=== PATIENT | female | born 2005 | race African-American/Black ===

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

== ENCOUNTER 2024-12-08 03:35 | Observation (INO) | payer MEDICAID, SELFPAY ==
[2024-12-08] VITALS (13 sets, daily range): BP systolic 122–154; BP diastolic 76–92; PULSE 70–106; TEMP 36.2
--- OUTSIDE RECORDS SUMMARY | 2024-12-08 03:38 | XMS_ITS | CCD ---
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 B1 <1:10 Normal <1:10 [facility] Comment on above: Performed By: #### A AFPM #### [facility] [employer] [address] [place] [address] [phone] Administrative Judge: Charles Steinberg MD [facility] [address] [place] [address] Administrative Judge: Zoltan Garcia MD #### TOXOG, CMVG, CMVM, TOXOM #### [facility] [employer] [address] [place] [address] [phone] Administrative Judge: Charles Steinberg MD #### ACOXA9, APARVP, ACOXAB #### [facility] [address] [place] [address] Administrative Judge: MD Eda Cruz. B2 1:40 Normal <1:10 [facility] Comment on above: Performed By: #### A AFPM #### [facility] [address] [place] [address] Administrative Judge: Charles Steinberg MD [facility] [address] [place] [address] Administrative Judge: Zoltan Garcia MD #### TOXOG, CMVG, CMVM, TOXOM #### [facility] [address] [place] [address] Administrative Judge: Charles Steinberg MD #### ACOXA9, APARVP, ACOXAB #### [facility] [address] [place] [address] Administrative Judge: MD Eda Cruz B3 1:40 Normal <1:10 [facility] Comment on above: Performed By: #### A AFPM #### [address] [address] Administrative Judge: Charles Steinberg MD [facility] [address] [place] [address] Administrative Judge: Zoltan Garcia MD #### TOXOG, CMVG, CMVM, TOXOM #### [address] [address] Administrative Judge: Charles Steinberg MD #### ACOXA9, APARVP, ACOXAB #### [facility] [address] [place] [address] Administrative Judge: MD Eda Cruz B4 1:160 Abnormal <1:10 [facility] Comment on above: Performed By: #### A AFPM #### [facility] [address] [place] [address] Administrative Judge: Charles Steinberg MD [facility] [address] [place] [address] Administrative Judge: Zoltan Garcia MD #### TOXOG, CMVG, CMVM, TOXOM #### [address] [address] Administrative Judge: Charles Steinberg MD #### ACOXA9, APARVP, ACOXAB #### [address] [address] Administrative Judge: MD Eda Cruz. B5 <1:10 Normal <1:10 [facility] Comment on above: Performed By: #### A AFPM #### [address] [address] Administrative Judge: Charles Steinberg MD [address] [phone] Administrative Judge: Zoltan Garcia MD #### TOXOG, CMVG, CMVM, TOXOM #### [address] [address] Administrative Judge: Charles Steinberg MD #### ACOXA9, APARVP, ACOXAB #### [address] [phone] Administrative Judge: MD Eda Cruz. B6 <1:10 Normal <1:10 [facility] Comment on above: Result Comment: (NOT E) INTERPRETIVE INFORMATION: Coxsackie B Virus Single positive antibody titers of greater than or equal to 1:80 may indicate past or current infection. Sero- conversion or an increase in titers between acute and convalescent sera of at least fourfold is considered strong evidence of current or recent infection. Performed By: [facility] [employer] [address] [place] [address] Wrecking Supervisor: Da Navarro MD, PhD CLIA Number: [id number] Performed By: #### A AFPM #### [address] [address] Administrative Judge: Charles Steinberg MD [address] [address] Administrative Judge: Zoltan Garcia MD #### TOXOG, CMVG, CMVM, TOXOM #### [address] [address] Administrative Judge: Charles Steinberg MD #### ACOXA9, APARVP, ACOXAB #### [address] [address] Administrative Judge: Zoltan Garcia MD Coxsackie A9 Titeron 023 Coxsackie A9 Titer <1:8 Normal <1:8 [facility] Comment on above: Result Comment: (NOT E) INTERPRETIVE INFORMATION: Coxsackie A Serotype 9 Titer Single positive antibody titers of greater than 1:32 may indicate past or current infection. Seroconversion or an increase in titers between acute and convalescent sera of at least fourfold is considered strong evidence of current or recent infection. Performed By: [address] [address] Wrecking Supervisor: Da Navarro MD, PhD CLIA Number: [id number] Performed By: #### A AFPM #### [address] [address] Administrative Judge: Charles Steinberg MD [address] [address] Administrative Judge: Zoltan Garcia MD #### TOXOG, CMVG, CMVM, TOXOM #### [address] [address] Administrative Judge: Charles Steinberg MD #### ACOXA9, APARVP, ACOXAB #### [address] [address] Administrative Judge: Zoltan Garcia MD AFP, Maternalon 05-09-2023 Determined by Other Normal [facility] Comment on above: Performed By: #### A AFPM #### [address] [address] Administrative Judge: Charles Steinberg MD [facility] [address] [place] [address] Administrative Judge: Zoltan Garcia MD #### TOXOG, CMVG, CMVM, TOXOM #### [address] [address] Administrative Judge: Charles Steinberg MD #### ACOXA9, APARVP, ACOXAB #### [facility] [address] [place] [address] Administrative Judge: Zoltan Garcia MD Due Date SEE NOTE Normal [facility] Comment on above: Result Comment: Resu lts for Estimated Due Date: 09 13 23 Performed By: #### A AFPM #### [address] [address] Administrative Judge: Charles Steinberg MD [facility] [address] [place] [address] Administrative Judge: Zoltan Garcia MD #### TOXOG, CMVG, CMVM, TOXOM #### [address] [address] Administrative Judge: Charles Steinberg MD #### ACOXA9, APARVP, ACOXAB #### [facility] [address] [place] [address] Administrative Judge: Zoltan Garcia MD Family History No Normal [facility] Comment on above: Performed By: #### A AFPM #### [address] [address] Administrative Judge: Charles Steinberg MD [facility] [address] [place] [address] Administrative Judge: Zoltan Garcia MD #### TOXOG, CMVG, CMVM, TOXOM #### [address] [address] Administrative Judge: Charles Steinberg MD #### ACOXA9, APARVP, ACOXAB #### [facility] [address] [place] [address] Administrative Judge: Zoltan Garcia MD Gestat Age (exact) 21 wks, 3 days Normal [facility] Comment on above: Performed By: #### A AFPM #### [address] [address] Administrative Judge: Charles Steinberg MD [facility] [address] [place], [place] [id number] Administrative Judge: Zoltan Garcia MD #### TOXOG, CMVG, CMVM, TOXOM #### [address] [address] Administrative Judge: Charles Steinberg MD #### ACOXA9, APARVP, ACOXAB #### [facility] [address] [place] [address] Administrative Judge: Zoltan Garcia MD Ins Req Matern Diab No [facility] Comment on above: Performed By: #### A AFPM #### [address] [address] Administrative Judge: Charles Steinberg MD [facility] [address] [place] [address] Administrative Judge: Zoltan Garcia MD #### TOXOG, CMVG, CMVM, TOXOM #### [facility] [address] [place] [address] Administrative Judge: Charles Steinberg MD #### ACOXA9, APARVP, ACOXAB #### [facility] [address] [place] [address] Administrative Judge: Zoltan Garcia MD Interpretation Screen Neg Normal [facility] Comment on above: Result Comment: (NOT E) INTERPRETATION: SCREEN NEGATIVE for open spina bifida Neural Tube Defects (NTD) Negative Pre-Test Post-Test Cutoff Neural Tube Defects Risks 1:1030 < 1:18480 1:250 Comments: The risk of an open neural tube defect is less than the screening cut-off. This test was developed and its performance characteristics determined by [facility]. It has not been cleared or approved by the [place] Food and Drug Administration. This test was performed in a CLIA certified laboratory and is intended for clinical purposes. Performed By: #### A AFPM #### [facility] [address] [place] [address] Administrative Judge: Charles Steinberg MD [facility] [address] [phone] Administrative Judge: Zoltan Garcia MD #### TOXOG, CMVG, CMVM, TOXOM #### [facility] [address] [place] [address] Administrative Judge: Charles Steinberg MD #### ACOXA9, APARVP, ACOXAB #### [facility] [address] [place] [address] Administrative Judge: Zoltan Garcia MD [age] [facility] Comment on above: Performed By: #### A AFPM #### [address] [address] Administrative Judge: Charles Steinberg MD [facility] [address] [place] [address] Administrative Judge: Zoltan Garcia MD #### TOXOG, CMVG, CMVM, TOXOM #### [facility] [address] [place] [address] Administrative Judge: Charles Steinberg MD #### ACOXA9, APARVP, ACOXAB #### [facility] [address] [place] [address] Administrative Judge: Zoltan Garcia MD Maternal Race Black [facility] Comment on above: Performed By: #### A AFPM #### [facility] [address] [place] [address] Administrative Judge: Charles Steinberg MD [facility] [address] [place] [address] Administrative Judge: Zoltan Garcia MD #### TOXOG, CMVG, CMVM, TOXOM #### [facility] [address] [place] [address] Administrative Judge: Charles Steinberg MD #### ACOXA9, APARVP, ACOXAB #### [facility] [address] [place] [address] Administrative Judge: Zoltan Garcia MD Maternal Weight 132.0 lbs. Normal [facility] Comment on above: Performed By: #### A AFPM #### [address] [address] Administrative Judge: Charles Steinberg MD [facility] [address] [place] [address] Administrative Judge: Zoltan Garcia MD #### TOXOG, CMVG, CMVM, TOXOM #### [address] [address] Administrative Judge: Charles Steinberg MD #### ACOXA9, APARVP, ACOXAB #### [facility] [address] [place] [address] Administrative Judge: Zoltan Garcia MD MoM for AFP 0.85 Normal [facility] Comment on above: Performed By: #### A AFPM #### [address] [address] Administrative Judge: Charles Steinberg MD [facility] [address] [place] [address] Administrative Judge: Zoltan Garcia MD #### TOXOG, CMVG, CMVM, TOXOM #### [facility] [address] [place] [address] Administrative Judge: Charles Steinberg MD #### ACOXA9, APARVP, ACOXAB #### [facility] [address] [place] [address] Administrative Judge: Zoltan Garcia MD Number of Fetuses Rendon Normal [facility] Comment on above: Performed By: #### A AFPM #### [facility] [address] [place] [address]71 Administrative Judge: Charles Steinberg MD [facility] [address] [place] [address] Administrative Judge: Zoltan Garcia MD #### TOXOG, CMVG, CMVM, TOXOM #### [address] [address] Administrative Judge: Charles Steinberg MD #### ACOXA9, APARVP, ACOXAB #### [facility] [address] [place] [address] Administrative Judge: Zoltan Garcia MD Patient's AFP 76 ng/mL [facility] Comment on above: Performed By: #### A AFPM #### [address] [address] Administrative Judge: Charles Steinberg MD [facility] [address] [place] [address] Administrative Judge: Zoltan Garcia MD #### TOXOG, CMVG, CMVM, TOXOM #### [facility] [address] [place] [address] Administrative Judge: Charles Steinberg MD #### ACOXA9, APARVP, ACOXAB #### [facility] [address] [place] [address] Administrative Judge: Zoltan Garcia MD Smoking No [facility] Comment on above: Performed By: #### A AFPM #### [address] [address] Administrative Judge: Charles Steinberg MD [facility] [address] [place] [address] Administrative Judge: Zoltan Garcia MD #### TOXOG, CMVG, CMVM, TOXOM #### [address] [address] Administrative Judge: Charles Steinberg MD #### ACOXA9, APARVP, ACOXAB #### [facility] [address] [place] [address] Administrative Judge: Zoltan Garcia MD Specimen See Note Normal [facility] Comment on above: Result Comment: (NOT E) Initial sample Performed By: [facility] [address] [place] [address] Wrecking Supervisor: Da Navarro MD, PhD CLIA Number: [id number] Performed By: #### A AFPM #### [address] [address] Administrative Judge: Charles Steinberg MD [facility] [address] [place], [place] [id number] Administrative Judge: Zoltan Garcia MD #### TOXOG, CMVG, CMVM, TOXOM #### [address] [address] Administrative Judge: Charles Steinberg MD #### ACOXA9, APARVP, ACOXAB #### [facility] [address] [place] [address] Administrative Judge: Zoltan Garcia MD Parvovirus B19 Panelon 05-08 Parvovirus IgG B19 1.20 IV High <=0.90 [facility] Comment on above: Result Comment: [...] time. Performed By: #### A AFPM #### [facility] [address] [place] [address] Administrative Judge: Charles Steinberg MD [facility] [address] [place] [address] Administrative Judge: Zoltan Garcia MD #### TOXOG, CMVG, CMVM, TOXOM #### [address] [phone] Administrative Judge: Charles Steinberg MD #### ACOXA9, APARVP, ACOXAB #### [facility] [address] [place] [address] Administrative Judge: Zoltan Garcia MD Parvovirus IgM B19 0.30 IV Normal <=0.90 [facility] Comment on above: Result Comment: [...] levels of specific IgM antibodies. Performed By: [facility] [address] [place] [address] Wrecking Supervisor: Da Navarro MD, PhD CLIA Number: [id number] Performed By: #### A AFPM #### [address] [address] Administrative Judge: Charles Steinberg MD [address] [address] Administrative Judge: Zoltan Garcia MD #### TOXOG, CMVG, CMVM, TOXOM #### [address] [address] Administrative Judge: Charles Steinberg MD #### ACOXA9, APARVP, ACOXAB #### [address] [address] Administrative Judge: Zoltan Garcia MD Toxoplasma Ab,IgGon 05-08-20 23 Toxoplasma Ab,IgG <0.5 Normal [facility] Comment on above: Result Comment: REFERENCE [...] SERA. Performed By: #### A AFPM #### [address] [address] Administrative Judge: Charles Steinberg MD [address] [address] Administrative Judge: Zoltan Garcia MD #### TOXOG, CMVG, CMVM, TOXOM #### [address] [address] Administrative Judge: Charles Steinberg MD #### ACOXA9, APARVP, ACOXAB #### [facility] [address] [place] [address] [phone] Administrative Judge: Zoltan Garcia MD Toxoplasma Ab,IgMon 05-08-20 23 Toxoplasma Ab,IgM 0.37 Index Normal [facility] Comment on above: Result Comment: REFERENCE RANGE: <0.90 NON-REACTIVE 0.90 TO 0.99 INDETERMINANT >=1.00 REACTIVE Performed By: #### A AFPM #### [address] [address] Administrative Judge: Charles Steinberg MD [address] [phone] Administrative Judge: Zoltan Garcia MD #### TOXOG, CMVG, CMVM, TOXOM #### [address] [address] Administrative Judge: Charles Steinberg MD #### ACOXA9, APARVP, ACOXAB #### [address] [id number] Administrative Judge: Zoltan Garcia MD AFP, Maternalon 05-07-2023 Current Smoking NO Normal [facility] Comment on above: Performed By: #### A AFPM #### [address] [address] Administrative Judge: Charles Steinberg MD [address] [address] Administrative Judge: Zoltan Garcia MD #### TOXOG, CMVG, CMVM, TOXOM #### [address] [address] Administrative Judge: Charles Steinberg MD #### ACOXA9, APARVP, ACOXAB #### [facility] [address] [place] [address] Administrative Judge: Zoltan Garcia MD Dating [facility] Comment on above: Performed By: #### A AFPM #### [facility] [address] [place] [address] Administrative Judge: Charles Steinberg MD [facility] [address] [place] [address] Administrative Judge: Zoltan Garcia MD #### TOXOG, CMVG, CMVM, TOXOM #### [facility] [address] [place] [address] Administrative Judge: Charles Steinberg MD #### ACOXA9, APARVP, ACOXAB #### [facility] [address] [place] [address] Administrative Judge: Zoltan Garcia MD Diabetic [facility] Comment on above: Performed By: #### A AFPM #### [facility] [address] [place] [address] Administrative Judge: Charles Steinberg MD [facility] [address] [place] [address] Administrative Judge: Zoltan Garcia MD #### TOXOG, CMVG, CMVM, TOXOM #### [facility] [address] [place] [address] Administrative Judge: Charles Steinberg MD #### ACOXA9, APARVP, ACOXAB #### [facility] [address] [place] [address] Administrative Judge: Zoltan Garcia MD Donor Egg [facility] Comment on above: Performed By: #### A AFPM #### [facility] [address] [place] [address] Administrative Judge: Charles Steinberg MD [facility] [address] [place] [address] Administrative Judge: Zoltan Garcia MD #### TOXOG, CMVG, CMVM, TOXOM #### [facility] [address] [place] [address] Administrative Judge: Charles Steinberg MD #### ACOXA9, APARVP, ACOXAB #### [facility] [address] [place] [address] Administrative Judge: Zoltan Garcia MD Estimated Due Date 09 13 2023 [facility] Comment on above: Performed By: #### A AFPM #### [facility] [address] [place] [address] Administrative Judge: Charles Steinberg MD [facility] [address] [place] [address] Administrative Judge: Zoltan Garcia MD #### TOXOG, CMVG, CMVM, TOXOM #### [facility] [address] [place] [address] Administrative Judge: Charles Steinberg MD #### ACOXA9, APARVP, ACOXAB #### [facility] [address] [place] [address] Administrative Judge: Zoltan Garcia MD Family History NO [facility] Comment on above: Performed By: #### A AFPM #### [address] [address] Administrative Judge: Charles Steinberg MD [facility] [address] [place] [address] Administrative Judge: Zoltan Garcia MD #### TOXOG, CMVG, CMVM, TOXOM #### [facility] [address] [place] [address] Administrative Judge: Charles Steinberg MD #### ACOXA9, APARVP, ACOXAB #### [facility] [address] [place] [address] Administrative Judge: Zoltan Garcia MD In Vitro Fertalizat NO [facility] Comment on above: Performed By: #### A AFPM #### [facility] [address] [place] [address] Administrative Judge: Charles Steinberg MD [facility] [address] [place] [address] Administrative Judge: Zoltan Garcia MD #### TOXOG, CMVG, CMVM, TOXOM #### [facility] [address] [place] [address] Administrative Judge: Charles Steinberg MD #### ACOXA9, APARVP, ACOXAB #### [facility] [address] [place], [place] [id number] Administrative Judge: Zoltan Garcia MD LMP date 12 07 2022 [facility] Comment on above: Performed By: #### A AFPM #### [facility] [address] [place] [address] Administrative Judge: Charles Steinberg MD [facility] [address] [place] [address] Administrative Judge: Zoltan Garcia MD #### TOXOG, CMVG, CMVM, TOXOM #### [facility] [address] [place] [address]72 Administrative Judge: Charles Steinberg MD #### ACOXA9, APARVP, ACOXAB #### [facility] [address] [place] [address] Administrative Judge: Zoltan Garcia MD Maternal date 09 30 2004 [facility] Comment on above: Performed By: #### A AFPM #### [facility] [address] [place] [address] Administrative Judge: Charles Steinberg MD [facility] [address] [place] [address] Administrative Judge: Zoltan Garcia MD #### TOXOG, CMVG, CMVM, TOXOM #### [facility] [address] [place] [address] Administrative Judge: Charles Steinberg MD #### ACOXA9, APARVP, ACOXAB #### [facility] [address] [place] [address] Administrative Judge: Zoltan Garcia MD Maternal Weight 132 Normal [facility] Comment on above: Performed By: #### A AFPM #### [facility] [address] [place] [address] Administrative Judge: Charles Steinberg MD [facility] [address] [place] [address] Administrative Judge: Zoltan Garcia MD #### TOXOG, CMVG, CMVM, TOXOM #### [facility] [address] [place] [address] Administrative Judge: Charles Steinberg MD #### ACOXA9, APARVP, ACOXAB #### [facility] [address] [place] [address] Administrative Judge: Zoltan Garcia MD Monochorionic Twins RENDON Normal [facility] Comment on above: Performed By: #### A AFPM #### [address] [address] Administrative Judge: Charles Steinberg MD [facility] [address] [place] [address] Administrative Judge: Zoltan Garcia MD #### TOXOG, CMVG, CMVM, TOXOM #### [facility] [address] [place] [address] Administrative Judge: Charles Steinberg MD #### ACOXA9, APARVP, ACOXAB #### [facility] [address] [place] [address] Administrative Judge: Zoltan Garcia MD Patient Weight Units LBS [facility] Comment on above: Performed By: #### A AFPM #### [facility] [address] [place] [address] Administrative Judge: Charles Steinberg MD [facility] [address] [place] [address] Administrative Judge: Zoltan Garcia MD #### TOXOG, CMVG, CMVM, TOXOM #### [facility] [address] [place] [address]692 Administrative Judge: Charles Steinberg MD #### ACOXA9, APARVP, ACOXAB #### [facility] [address] [place] [address] Administrative Judge: Zoltan Garcia MD Race (Maternal) BLACK [facility] Comment on above: Performed By: #### A AFPM #### [address] [address] Administrative Judge: Charles Steinberg MD [facility] [address] [place] [address] Administrative Judge: Zoltan Garcia MD #### TOXOG, CMVG, CMVM, TOXOM #### [facility] [address] [place] [address] Administrative Judge: Charles Steinberg MD #### ACOXA9, APARVP, ACOXAB #### [facility] [address] [place] [address] Administrative Judge: Zoltan Garcia MD Repeat Specimen NO [facility] Comment on above: Performed By: #### A AFPM #### [address] [address] Administrative Judge: Charles Steinberg MD [facility] [address] [place] [address] Administrative Judge: Zoltan Garcia MD #### TOXOG, CMVG, CMVM, TOXOM #### [facility] [address] [place] [address] Administrative Judge: Charles Steinberg MD #### ACOXA9, APARVP, ACOXAB #### [facility] [address] [place] [address] Administrative Judge: Zoltan Garcai MD Valproic/Carbamazep INFORMATION NOT PROVIDED Normal [facility] Comment on above: Performed By: #### A AFPM #### [address] [address] Administrative Judge: Charles Steinberg MD [facility] [address] [place] [address] Administrative Judge: Zoltan Garcia MD #### TOXOG, CMVG, CMVM, TOXOM #### [address] [address] Administrative Judge: Charles Steinberg MD #### ACOXA9, APARVP, ACOXAB #### [facility] [address] [place] [address] Administrative Judge: Zoltan Garcia MD CMV Ab,IgGon 05-07-2023 CMV Ab,IgG 0.2 Normal <0.9 [facility] Comment on above: Result Comment: [...] findings. Performed By: #### A AFPM #### [address] [address] [address] Administrative Judge: Charles Steinberg MD [facility] [address] [place] [id number] Administrative Judge: Zoltan Garcia MD #### TOXOG, CMVG, CMVM, TOXOM #### [address] [id number] Administrative Judge: Charles Steinberg MD #### ACOXA9, APARVP, ACOXAB #### [facility] [address] [place] [id number] Administrative Judge: Zoltan Garcia MD CMV Ab,IgMon 05-07-2023 CMV Ab,IgM 0.3 Normal <0.9 [facility] Comment on above: Result Comment: [...] findings. Performed By: #### A AFPM #### [address] [address] Administrative Judge: Charles Steinberg MD [address] [address] Administrative Judge: Zoltan Garcia MD #### TOXOG, CMVG, CMVM, TOXOM #### [address] [address] Administrative Judge: Charles Steinberg MD #### ACOXA9, APARVP, ACOXAB #### [facility] [address] [place] [id number] Administrative Judge: Zoltan Garcia MD CULTURE THROATon 8 CULTURE THROAT Culture Observations : NORMAL RESPIRATORY JANEL. Normal [facility] Comment on above: Performed By: #### S SCRN, THRTCX #### [facility] [address] [id number] Gopal Devi STREPT SCREENon 02-24-2021 STREP SCREEN A Negative Normal NEGATIVE [facility] Comment on above: Performed By: #### S SCRN THRTCX #### [facility] [address], [place] [address] Gopal Devi Encounters Encounter Date Encounter Type [...] Start: 05-06-2023 End: 05-07-2023 ambulatory MARV RDZ [facility] Start: 02-24-2021 End: 02-24-[address] BING HEAD Facility:H1 Procedures Date Procedure Procedure Detail Performing Clinician H/O: section S/P sectio n Dorina SHIPLEY Work Phone: Plan of Treatment Date Care Activity Detail Author Start: 10-08-2023 End: 10-08-2023 ambulatory 10/08/2023 1:30 PM EDT Postp artum Visit [facility] [address] [facility] [place] [id number] Dorina Shetty PA [address] [place] [address] [facility] Payers Date Payer Category Payer Medicaid [facility] [employer] [place]ICA[place] [id number] 2023-Present [address] [place] [address] [id number] 2022 Medicaid [id number] 2004 Unknown [id number] 2004 Unknown [id number] 2004 Unknown [id number] 2004 Unknown [id number] 2004 Unknown [id number] [id number] 2004 Unknown [id number] [id number] 2004 Unknown [id number] [id number] 1968 Unknown [id number] 1959 Self-pay [id number] Social History Date Type Detail Facility Tobacco smoking stat [facility] Tobacco smoking consumption unknown [facility] Start: 2004 Sex Assigned At Not on file [facility] Gender identity Not on file [facility] History of Present illness Narrative 09-09-2023 QUINTEN Meek - 09/09/2023 3:00 PM EST Note Date & Type Note Facility 09-09-2023 History of Presen t illness Narrative Reason for Appointment: Patient ID: Austin Banda is a 17 y.o. female who presents for Care and Post-op Visit Patient presents today for Acute Visit and 2 Week Post Op appointment. Current Medications: has a current medication list which includes the following prescription(s): aspirin, docusate sodium, ibuprofen, lqehdqqg-iyp-wa-fa, and valacyclovir. Medical History: Active Ambulatory Problems [...] of: QUINTEN Meek documented in this encounter [facility] Evaluation note Note Date & Type [...] and content) DATE CREATED AUTHOR 03/01/2021 [facility] DATE CREATED AUTHOR AUTHOR'S ORGANIZ ATION 08/22/2023 [facility] DATE CREATED AUTHOR AUTHOR'S ORGANIZ ATION 09/10/2023 [facility] EPIC Reason for Visit (unrecogniz [...] BE BASED ON THE PRIMARY CLINICAL RECORDS. [facility] [employer] provides no warranty or guarantee of the accuracy or completeness of information in this document.
[2024-12-08 04:31] LABS: Eosinophils Percent Auto 0.2 % (0.9-7.0); Hemoglobin 10.9 g/dL (12.0-16.0); Immature Granulocytes Abs Auto 0.02 10^3/uL (0.00-0.03); Immature Granulocytes Pct Auto 0.3 % (0.0-0.5); Lymphocytes Absolute Auto 1.6 10^3/uL (1.2-3.8); Lymphocytes Percent Auto 28.1 % (20.5-60.0); Mean Corpuscular Hemoglobin 28.6 pg (26.7-34.0); Mean Corpuscular Volume 86.6 fL (81.0-99.0); Mean Platelet Volume 10.8 fL (9.5-13.5); Monocytes Absolute Auto 0.3 10^3/uL (0.3-0.8); Monocytes Percent Auto 5.6 % (1.7-12.0); Neutrophils Absolute Auto 3.8 10^3/uL (1.4-6.5); Neutrophils Percent Auto 65.8 % (43.0-75.0); Platelet Count 213 10^3/uL (150-450); Red Blood Count 3.81 10^6/uL (4.20-5.40); Red Cell Distribution Width 13.7 % (11.0-15.0); White Blood Count 5.7 10^3/uL (4.0-11.0)
[2024-12-08 04:47] LABS: Estimated Average Glucose 120 mg/dL; Glycohemoglobin A1C 5.8 % (4.5-6.2)
[2024-12-08 04:58] LABS: Thyroid Stimulating Hormone 2.834 uIU/mL (0.358-3.740)
--- OUTSIDE RECORDS SUMMARY | 2024-12-08 06:08 | XMS_ITS | CCD ---
Author Organization [facility] Care Team Providers Care Cereal Supervisor Name Role Phone PAY, DR SMART Attending Unavailable PAY, DR SMART Consulting Unavailable PAY, DR SMART Admitting Unavailable MARV RDZ Referring Unavailable Unavailable Primary Care Provider DORINA Prieto Attending Unavailable LOPEZ PICKETT Attending Unavailable LOPEZ PICKETT Attending Unavailable LOPEZ PICKETT Attending Unavailable DORINA SHETTY Attending Unavailable DORINA SHETTY Attending Unavailable DORINA SHETTY Attending Unavailable Andrew CONTENT EDITOR, Luz Aleman Unavailable Medications Current Medications Medication Drug Class(es) Dates Sig (Normalized) Sig (Original) aspirin 81 mg chewable tablet (3 sources) Platelet Aggregation Inhibitor, Nonsteroidal Anti-inflammatory Drug aspirin 81 MG chewable tablet Chew 1 tablet in the morning. Active docusate sodium 100 mg oral capsule (3 sources) Start: 08-29-2023 take 1 capsule by mouth in the morning docusate sodium (Colace) 100 MG capsule Take 100 mg by mouth in the morning and 100 mg before bedtime. 08/29/2023 Active ibuprofen 800 mg oral tablet (3 sources) Nonsteroidal Anti-inflammatory Drug Start: 08-29-2023 take 1 tablet by mouth every eight hours ibuprofen 800 MG tablet Take 800 mg by mouth every 8 (eight) hours 08/29/2023 Active Lvhnybed-Hnq-Zv-FA ( 1 + IRON PO) (3 sources) Kxhqedvx-Ykk-Ui-F A ( 1 + IRON PO) Take by mouth. Active Multivi t-Min-Fe-FA ( 1 + IRON PO) Take by mouth. 0 Active valACYclovir 500 mg oral tablet (3 sources) Herpesvirus Nucleoside Analog DNA Polymerase Inhibitor, Herpes Simplex Virus Nucleoside Analog DNA Polymerase Inhibitor, Herpes Zoster Virus Nucleoside Analog DNA Polymerase Inhibitor Start: 07-03-2023 take 1 tablet by mouth in the morning valACYclovir (Valtrex) 500 MG tablet Take 500 mg by mouth in the morning. 07/03/2023 Active Problems Active Problems Problem Classification [...] Results Test Name Value Interpretation Reference Range Facility ALL CBC WITH AUTO DIFFon BASOPHILS ABSOLUTE AUTO 0 [facility] Basophils/100 WBC (Bld) 0 % Low 0.2 - 2.0 % [facility] Eosinophils/100 WBC (Bld) 0.2 % Low 0.9 - 7.0 % [facility] Erythrocyte distribution width (RBC) [Ratio] 13.7 % 11.0 - 15.0 % [facility] Hematocrit (Bld) [Volume fraction] 33 % Low 36.0 - 48.0 % [facility] [Mass/Vol] 10.9 g/dL Low 12.0 - 16.0 g/dL [facility] IMMATURE GRANULOCYTES ABS AUTO 0.02 [facility] Immature granulocytes/100 WBC (Bld) 0.3 % 0.0 - 0.5 % [facility] Interpretation and review of laboratory results Abnormal [facility] LYMPHOCYTES ABSOLUTE AUTO 1.6 [facility] Lymphocytes/100 WBC (Bld) 28.1 % 20.5 - 60.0 % [facility] MCH (RBC) [Entitic mass] 28.6 pg 26.7 - 34.0 pg [facility] MCHC (RBC) [Mass/Vol] 33 g/dL 29.9 - 35.2 g/dL [facility] (RBC) [Entitic vol] 86.6 fL 81.0 - 99.0 fL [facility] MONOCYTES ABSOLUTE AUTO 0.3 [facility] Monocytes/100 WBC (Bld) 5.6 % 1.7 - 12.0 % [facility] NEUTROPHILS ABSOLUTE AUTO 3.8 [facility] Neutrophils/100 WBC (Bld) 65.8 % 43.0 - 75.0 % [facility] Platelet mean volume (Bld) [Entitic vol] 10.8 fL 9.5 - 13.5 fL [facility] EO # 0 [facility] PLT 213 [facility] RBC 3.81 Low [facility] WBC 5.7 [facility] [place] B Abon 05-14-2023 Eda tp. B1 <1:10 Normal <1:10 [facility] Comment on above: Performed By: #### A AFPM #### [facility] [employer] [address] [place] [address] Vamp Creaser: Charles Steinberg MD [address] [address] Vamp Creaser: Zoltan Garcia MD #### TOXOG, CMVG, CMVM, TOXOM #### [facility] [employer] [address] [place], [place] [phone] Vamp Creaser: Charles Steinberg MD #### ACOXA9, APARVP, ACOXAB #### [facility] [address] [place] [address] Vamp Creaser: MD Eda Cruz. B2 1:40 Normal <1:10 [facility] Comment on above: Performed By: #### A AFPM #### [facility] [employer] [address] [place] [address] Vamp Creaser: Charles Steinberg MD [facility] [address] [place] [address] Vamp Creaser: Zoltan Garcia MD #### TOXOG, CMVG, CMVM, TOXOM #### [facility] [address] [place] [address] Vamp Creaser: Charles Steinberg MD #### ACOXA9, APARVP, ACOXAB #### [facility] [address] [place] [address] Vamp Creaser: MD Eda Cruz B3 1:40 Normal <1:10 [facility] Comment on above: Performed By: #### A AFPM #### [address] [address] Vamp Creaser: Charles Steinberg MD [facility] [address] [place] [address] Vamp Creaser: Zoltan Garcia MD #### TOXOG, CMVG, CMVM, TOXOM #### [address] [address] Vamp Creaser: Charles Steinberg MD #### ACOXA9, APARVP, ACOXAB #### [facility] [address] [place] [address] Vamp Creaser: MD Eda Cruz B4 1:160 Abnormal <1:10 [facility] Comment on above: Performed By: #### A AFPM #### [address] [address] Vamp Creaser: Charles Steinberg MD [facility] [address] [place] [address] Vamp Creaser: Zoltan Garcia MD #### TOXOG, CMVG, CMVM, TOXOM #### [address] [address] Vamp Creaser: Charles Steinberg MD #### ACOXA9, APARVP, ACOXAB #### [facility] [address] [place] [address] Vamp Creaser: MD Eda Cruz. B5 <1:10 Normal <1:10 [facility] Comment on above: Performed By: #### A AFPM #### [address] [address] Vamp Creaser: Charles Steinberg MD [address] [address] Vamp Creaser: Zoltan Garcia MD #### TOXOG, CMVG, CMVM, TOXOM #### [address] [address] Vamp Creaser: Charles Steinberg MD #### ACOXA9, APARVP, ACOXAB #### [facility] [address] [place] [address] Vamp Creaser: MD Eda Cruz. B6 <1:10 Normal <1:10 [facility] Comment on above: Result Comment: (NOT E) INTERPRETIVE INFORMATION: [place] B Virus Single positive antibody titers of greater than or equal to 1:80 may indicate past or current infection. Sero- conversion or an increase in titers between acute and convalescent sera of at least fourfold is considered strong evidence of current or recent infection. Performed By: [address] [address] Store Protection Specialist: Da Navarro MD, PhD CLIA Number: [id number] Performed By: #### A AFPM #### [address] [address] Vamp Creaser: Charles Steinberg MD [address] [address] Vamp Creaser: Zoltan Garcia MD #### TOXOG, CMVG, CMVM, TOXOM #### [address] [address] Vamp Creaser: Charles Steinberg MD #### ACOXA9, APARVP, ACOXAB #### [address] [address] Vamp Creaser: Zoltan Garcia MD [place] A9 Titeron 023 [place] A9 Titer <1:8 Normal <1:8 [facility] Comment on above: Result Comment: (NOT E) INTERPRETIVE INFORMATION: [place] A Serotype 9 Titer Single positive antibody titers of greater than 1:32 may indicate past or current infection. Seroconversion or an increase in titers between acute and convalescent sera of at least fourfold is considered strong evidence of current or recent infection. Performed By: [address] [address] Store Protection Specialist: Da Navarro MD, PhD CLIA Number: [id number] Performed By: #### A AFPM #### [address] [address] Vamp Creaser: Charles Steinberg MD [address] [phone] Vamp Creaser: Zoltan Garcia MD #### TOXOG, CMVG, CMVM, TOXOM #### [address] [address] Vamp Creaser: Charles Steinberg MD #### ACOXA9, APARVP, ACOXAB #### [address] [address] Vamp Creaser: Zoltan Garcia MD AFP, Maternalon 05-09-2023 Determined by Other [facility] Comment on above: Performed By: #### A AFPM #### [address] [address] Vamp Creaser: Charles Steinberg MD [address] [place] [address] Vamp Creaser: Zoltan Garcia MD #### TOXOG, CMVG, CMVM, TOXOM #### [facility] [address] [place] [address] Vamp Creaser: Charles Steinberg MD #### ACOXA9, APARVP, ACOXAB #### [facility] [address] [place] [address] Vamp Creaser: Zoltan Garcia MD Due Date SEE NOTE Normal [facility] Comment on above: Result Comment: Resu lts for Estimated Due Date: 09 13 23 Performed By: #### A AFPM #### [address] [address] Vamp Creaser: Charles Steinberg MD [facility] [address] [place] [address] Vamp Creaser: Zoltan Garcia MD #### TOXOG, CMVG, CMVM, TOXOM #### [facility] [address] [place] [address] Vamp Creaser: Charles Steinberg MD #### ACOXA9, APARVP, ACOXAB #### [facility] [address] [place] [address] Vamp Creaser: Zoltan Garcia MD Family History No Normal [facility] Comment on above: Performed By: #### A AFPM #### [facility] [address] [place] [address] Vamp Creaser: Charles Steinberg MD [facility] [address] [place] [address] Vamp Creaser: Zoltan Garcia MD #### TOXOG, CMVG, CMVM, TOXOM #### [facility] [address] [place] [address] Vamp Creaser: Charles Steinberg MD #### ACOXA9, APARVP, ACOXAB #### [facility] [address] [place] [address] Vamp Creaser: Zoltan Garcia MD Gestat Age (exact) 21 wks, 3 days Normal [facility] Comment on above: Performed By: #### A AFPM #### [address] [address] Vamp Creaser: Charles Steinberg MD [facility] [address] [place] [address] Vamp Creaser: Zoltan Garcia MD #### TOXOG, CMVG, CMVM, TOXOM #### [address] [address] Vamp Creaser: Charles Steinberg MD #### ACOXA9, APARVP, ACOXAB #### [address] [address] Vamp Creaser: Zoltan Garcia MD Ins Req Matern Diab No [facility] Comment on above: Performed By: #### A AFPM #### [address] [address] Vamp Creaser: Charles Steinberg MD [address] [address] Vamp Creaser: Zoltan Garcia MD #### TOXOG, CMVG, CMVM, TOXOM #### [address] [address] Vamp Creaser: Charles Steinberg MD #### ACOXA9, APARVP, ACOXAB #### [facility] [address] [place] [address] Vamp Creaser: Zoltan Garcia MD Interpretation Screen Neg Normal [facility] Comment on above: Result Comment: (NOT E) INTERPRETATION: SCREEN NEGATIVE for open spina bifida Neural Tube Defects (NTD) Negative Pre-Test Post-Test Cutoff Neural Tube Defects Risks 1:1030 < 1:17855 1:250 Comments: The risk of an open neural tube defect is less than the screening cut-off. This test was developed and its performance characteristics determined by [employer]. It has not been cleared or approved by the [place] Food and Drug Administration. This test was performed in a CLIA certified laboratory and is intended for clinical purposes. Performed By: #### A AFPM #### [address] [address] Vamp Creaser: Charles Steinberg MD [address] [phone] Vamp Creaser: Zlotan Garcia MD #### TOXOG, CMVG, CMVM, TOXOM #### [address] [address] Vamp Creaser: Charles Steinberg MD #### ACOXA9, APARVP, ACOXAB #### [address] [phone] Vamp Creaser: Zoltan Garcia MD [age] [facility] Comment on above: Performed By: #### A AFPM #### [address] [address] Vamp Creaser: Charles Steinberg MD [address] [phone] Vamp Creaser: Zoltan Garcia MD #### TOXOG, CMVG, CMVM, TOXOM #### [address] [address] Vamp Creaser: Charles Steinberg MD #### ACOXA9, APARVP, ACOXAB #### [address] [phone] Vamp Creaser: Zoltan Garcia MD Maternal Race Black [facility] Comment on above: Performed By: #### A AFPM #### [address] [address] Vamp Creaser: Charles Steinberg MD [facility] [address] [place] [address] Vamp Creaser: Zoltan Garcia MD #### TOXOG, CMVG, CMVM, TOXOM #### [facility] [address] [place] [address] Vamp Creaser: Charles Steinberg MD #### ACOXA9, APARVP, ACOXAB #### [facility] [address] [place] [address] Vamp Creaser: Zoltan Garcia MD Maternal Weight 132.0 lbs. Normal [facility] Comment on above: Performed By: #### A AFPM #### [address] [address] Vamp Creaser: Charles Steinberg MD [facility] [address] [place] [address] Vamp Creaser: Zoltan Garcia MD #### TOXOG, CMVG, CMVM, TOXOM #### [facility] [address] [place] [address] Vamp Creaser: Charles Steinberg MD #### ACOXA9, APARVP, ACOXAB #### [facility] [address] [place] [address] Vamp Creaser: Zoltan Garcia MD MoM for AFP 0.85 Normal [facility] Comment on above: Performed By: #### A AFPM #### [facility] [address] [place] [address] Vamp Creaser: Charles Steinberg MD [facility] [address] [place] [address] Vamp Creaser: Zoltan Garcia MD #### TOXOG, CMVG, CMVM, TOXOM #### [facility] [address] [place] [address] Vamp Creaser: Charles Steinberg MD #### ACOXA9, APARVP, ACOXAB #### [facility] [address] [place] [address] Vamp Creaser: Zoltan Garcia MD Number of Fetuses Rendon Normal [facility] Comment on above: Performed By: #### A AFPM #### [address] [address] Vamp Creaser: Charles Steinberg MD [facility] [address] [place] [address] Vamp Creaser: Zoltan Garcia MD #### TOXOG, CMVG, CMVM, TOXOM #### [address] [address] Vamp Creaser: Charles Steinberg MD #### ACOXA9, APARVP, ACOXAB #### [facility] [address] [place] [address] Vamp Creaser: Zoltan Garcia MD Patient's AFP 76 ng/mL Normal [facility] Comment on above: Performed By: #### A AFPM #### [address] [address] Vamp Creaser: Charles Steinberg MD [facility] [address] [place] [address] Vamp Creaser: Zoltan Garcia MD #### TOXOG, CMVG, CMVM, TOXOM #### [address] [address] Vamp Creaser: Charles Steinberg MD #### ACOXA9, APARVP, ACOXAB #### [facility] [address] [place] [address] Vamp Creaser: Zoltan Garcia MD Smoking No [facility] Comment on above: Performed By: #### A AFPM #### [address] [address] Vamp Creaser: Charles Steinberg MD [address] [address] Vamp Creaser: Zoltan Garcia MD #### TOXOG, CMVG, CMVM, TOXOM #### [address] [address] Vamp Creaser: Charles Steinberg MD #### ACOXA9, APARVP, ACOXAB #### [address] [address] Vamp Creaser: Zoltan Garcia MD Specimen See Note Normal [facility] Comment on above: Result Comment: (NOT E) Initial sample Performed By: [address] [address] Store Protection Specialist: Da Navarro MD, PhD CLIA Number: [id number] Performed By: #### A AFPM #### [address] [address] Vamp Creaser: Charles Steinberg MD [address] [phone] Vamp Creaser: Zoltan Garcia MD #### TOXOG, CMVG, CMVM, TOXOM #### [address] [address] Vamp Creaser: Charles Steinberg MD #### ACOXA9, APARVP, ACOXAB #### [address] [address] Vamp Creaser: Zoltan Garcia MD Parvovirus B19 Panelon 05-08 Parvovirus IgG B19 1.20 IV High <=0.90 [facility] Comment on above: Result Comment: (NOT [...] time. Performed By: #### A AFPM #### [address] [place], [place] [phone] Vamp Creaser: Charles Steinberg MD [facility] [address] [place], [place] [id number] Vamp Creaser: Zoltan Garcia MD #### TOXOG, CMVG, CMVM, TOXOM #### [address] [place], [place] [id number] Vamp Creaser: Charles Steinberg MD #### ACOXA9, APARVP, ACOXAB #### [facility] [address] [place], [place] [phone] Vamp Creaser: Zoltan Garcia MD Parvovirus IgM B19 0.30 IV Normal <=0.90 [facility] Comment on above: Result Comment: (NOT [...] levels of specific IgM antibodies. Performed By: [address] [address] Store Protection Specialist: Da Navarro MD, PhD CLIA Number: [id number] Performed By: #### A AFPM #### [address] [address] Vamp Creaser: Charles Steinberg MD [address] [address] Vamp Creaser: Zoltan Garcia MD #### TOXOG, CMVG, CMVM, TOXOM #### [address] [address] Vamp Creaser: Charles Steinberg MD #### ACOXA9, APARVP, ACOXAB #### [address] [address] Vamp Creaser: Zoltan Garcia MD Toxoplasma Ab,IgGon 05-08-20 23 Toxoplasma Ab,IgG <0.5 Normal [facility] Comment on above: Result Comment: REFERENCE [...] SERA. Performed By: #### A AFPM #### [address] [address] Vamp Creaser: Charles Steinberg MD [address] [phone] Vamp Creaser: Zoltan Garcia MD #### TOXOG, CMVG, CMVM, TOXOM #### [address] [address] Vamp Creaser: Charles Steinberg MD #### ACOXA9, APARVP, ACOXAB #### [facility] [address] [place] [address] Vamp Creaser: Zoltan Garcia MD Toxoplasma Ab,IgMon 05-08-20 23 Toxoplasma Ab,IgM 0.37 Index [facility] Comment on above: Result Comment: REFERENCE RANGE: <0.90 NON-REACTIVE 0.90 TO 0.99 INDETERMINANT >=1.00 REACTIVE Performed By: #### A AFPM #### [address] [address] Vamp Creaser: Charles Steinberg MD [facility] [address] [place] [address] Vamp Creaser: Zoltan Garcia MD #### TOXOG, CMVG, CMVM, TOXOM #### [address] [address] Vamp Creaser: Charles Steinberg MD #### ACOXA9, APARVP, ACOXAB #### [facility] [address] [place] [address] Vamp Creaser: Zoltan Garcia MD AFP, Maternalon 05-07-2023 Current Smoking NO [facility] Comment on above: Performed By: #### A AFPM #### [address] [address] Vamp Creaser: Charles Steinberg MD [facility] [address] [place], [place] [phone] Vamp Creaser: Zoltan Garcia MD #### TOXOG, CMVG, CMVM, TOXOM #### [address] [address] Vamp Creaser: Charles Steinberg MD #### ACOXA9, APARVP, ACOXAB #### [facility] [address] [place] [address] Vamp Creaser: Zoltan Garcia MD Dating [facility] Comment on above: Performed By: #### A AFPM #### [facility] [address] [place] [address] Vamp Creaser: Charles Steinberg MD [facility] [address] [place] [address] Vamp Creaser: Zoltan Garcia MD #### TOXOG, CMVG, CMVM, TOXOM #### [facility] [address] [place] [address] Vamp Creaser: Charles Steinberg MD #### ACOXA9, APARVP, ACOXAB #### [facility] [address] [place] [address] Vamp Creaser: Zoltan Garcia MD Diabetic [facility] Comment on above: Performed By: #### A AFPM #### [address] [address] Vamp Creaser: Charles Steinberg MD [facility] [address] [place] [address] Vamp Creaser: Zoltan Garcia MD #### TOXOG, CMVG, CMVM, TOXOM #### [address] [address] Vamp Creaser: Charles Steinberg MD #### ACOXA9, APARVP, ACOXAB #### [facility] [address] [place] [address] Vamp Creaser: Zoltan Garcia MD Donor Egg [facility] Comment on above: Performed By: #### A AFPM #### [facility] [address] [place] [address] Vamp Creaser: Charles Steinberg MD [facility] [address] [place] [address] Vamp Creaser: Zoltan Garcia MD #### TOXOG, CMVG, CMVM, TOXOM #### [facility] [address] [place] [address] Vamp Creaser: Charles Steinberg MD #### ACOXA9, APARVP, ACOXAB #### [facility] [address] [place] [address] Vamp Creaser: Zoltan Garcia MD Estimated Due Date 09 13 2023 [facility] Comment on above: Performed By: #### A AFPM #### [facility] [address] [place] [address] Vamp Creaser: Charles Steinberg MD [facility] [address] [place] [address] Vamp Creaser: Zoltan Garcia MD #### TOXOG, CMVG, CMVM, TOXOM #### [address] [address] Vamp Creaser: Charles Steinberg MD #### ACOXA9, APARVP, ACOXAB #### [facility] [address] [place] [address] Vamp Creaser: Zoltan Garcia MD Family History NO [facility] Comment on above: Performed By: #### A AFPM #### [address] [address] Vamp Creaser: Charles Steinberg MD [facility] [address] [place] [address] Vamp Creaser: Zoltan Garcia MD #### TOXOG, CMVG, CMVM, TOXOM #### [facility] [address] [place] [address] Vamp Creaser: Charles Steinberg MD #### ACOXA9, APARVP, ACOXAB #### [facility] [address] [place] [address] Vamp Creaser: Zoltan Garcia MD In Vitro Fertalizat [facility] Comment on above: Performed By: #### A AFPM #### [address] [address] Vamp Creaser: Charles Steinberg MD [facility] [address] [place] [address] Vamp Creaser: Zoltan Garcia MD #### TOXOG, CMVG, CMVM, TOXOM #### [address] [address] Vamp Creaser: Charles Steinberg MD #### ACOXA9, APARVP, ACOXAB #### [facility] [address] [place] [address] Vamp Creaser: Zoltan Garcia MD LMP date 12 07 2022 [facility] Comment on above: Performed By: #### A AFPM #### [address] [address] Vamp Creaser: Charles Steinberg MD [facility] [address] [place] [address] Vamp Creaser: Zoltan Garcia MD #### TOXOG, CMVG, CMVM, TOXOM #### [address] [address] Vamp Creaser: Charles Steinberg MD #### ACOXA9, APARVP, ACOXAB #### [facility] [address] [place] [address] Vamp Creaser: Zoltan Garcia MD Maternal date 09 30 2004 [facility] Comment on above: Performed By: #### A AFPM #### [address] [address] Vamp Creaser: Charles Steinberg MD [facility] [address] [place] [address] Vamp Creaser: Zoltan Garcia MD #### TOXOG, CMVG, CMVM, TOXOM #### [address] [address] Vamp Creaser: Charles Steinberg MD #### ACOXA9, APARVP, ACOXAB #### [facility] [address] [place] [address] Vamp Creaser: Zoltan Garcia MD Maternal Weight 132 Normal [facility] Comment on above: Performed By: #### A AFPM #### [facility] [address] [place] [address] Vamp Creaser: Charles Steinberg MD [facility] [address] [place] [address] Vamp Creaser: Zoltan Garcia MD #### TOXOG, CMVG, CMVM, TOXOM #### [address] [address] Vamp Creaser: Charles Steinberg MD #### ACOXA9, APARVP, ACOXAB #### [facility] [address] [place] [address] Vamp Creaser: Zoltan Garcia MD Monochorionic Twins RENDON Normal [facility] Comment on above: Performed By: #### A AFPM #### [address] [address] Vamp Creaser: Charles Steinberg MD [facility] [address] [place] [address] Vamp Creaser: Zoltan Garcia MD #### TOXOG, CMVG, CMVM, TOXOM #### [facility] [address] [place] [address] Vamp Creaser: Charles Steinberg MD #### ACOXA9, APARVP, ACOXAB #### [facility] [address] [place] [address] Vamp Creaser: Zoltan Garcia MD Patient Weight Units LBS Normal [facility] Comment on above: Performed By: #### A AFPM #### [facility] [address] [place] [address] Vamp Creaser: Charles Steinberg MD [facility] [address] [place] [address] Vamp Creaser: Zoltan Garcia MD #### TOXOG, CMVG, CMVM, TOXOM #### [facility] [address] [place] [address] Vamp Creaser: Charles Steinberg MD #### ACOXA9, APARVP, ACOXAB #### [facility] [address] [place] [address] Vamp Creaser: Zoltan Garcia MD [facility] Comment on above: Performed By: #### A AFPM #### [address] [address] Vamp Creaser: Charles Steinberg MD [facility] [address] [place] [address] Vamp Creaser: Zoltan Garcia MD #### TOXOG, CMVG, CMVM, TOXOM #### [facility] [address] [place] [address] Vamp Creaser: Charles Steinberg MD #### ACOXA9, APARVP, ACOXAB #### [facility] [address] [place] [address] Vamp Creaser: Zoltan Garcia MD Repeat Specimen NO [facility] Comment on above: Performed By: #### A AFPM #### [facility] [address] [place] [id number] Vamp Creaser: Charles Steinberg MD [facility] [address] [place] [address] Vamp Creaser: Zoltan Garcia MD #### TOXOG, CMVG, CMVM, TOXOM #### [facility] [address] [place] [phone] Vamp Creaser: Charles Steinberg MD #### ACOXA9, APARVP, ACOXAB #### [facility] [address] [place] [phone] Vamp Creaser: Zoltan Garcia MD Valproic/Carbamazep INFORMATION NOT PROVIDED Normal [facility] Comment on above: Performed By: #### A AFPM #### [address] [address] Vamp Creaser: Charles Steinberg MD [facility] [address] [place] [id number] Vamp Creaser: Zoltan Garcia MD #### TOXOG, CMVG, CMVM, TOXOM #### [address] [address] Vamp Creaser: Charles Steinberg MD #### ACOXA9, APARVP, ACOXAB #### [facility] [address] [place] [phone] Vamp Creaser: Zoltan Garcia MD CMV Ab,IgGon 05-07-2023 CMV Ab,IgG 0.2 Normal <0.9 [facility] Comment on above: Result Comment: Reference [...] findings. Performed By: #### A AFPM #### [address] [id number] Vamp Creaser: Charles Steinberg MD [facility] [address] [place] [id number] Vamp Creaser: Zoltan Garcia MD #### TOXOG, CMVG, CMVM, TOXOM #### [facility] [address] [place] [phone] Vamp Creaser: Charles Steinberg MD #### ACOXA9, APARVP, ACOXAB #### [facility] [address] [place] [address] Vamp Creaser: Zoltan Garcia MD CMV Ab,IgMon 05-07-2023 CMV Ab,IgM 0.3 Normal <0.9 [facility] Comment on above: Result Comment: Reference [...] findings. Performed By: #### A AFPM #### [facility] [address] [place] [phone] Vamp Creaser: Charles Steinberg MD [facility] [address] [place] [address] [id number] Vamp Creaser: Zoltan Garcia MD #### TOXOG, CMVG, CMVM, TOXOM #### [facility] [address] [place] [phone] Vamp Creaser: Charles Steinberg MD #### ACOXA9, APARVP, ACOXAB #### [facility] [address] [place] [address] Vamp Creaser: Zoltan Garcia MD CULTURE THROATon 9 CULTURE THROAT Culture Observations : NORMAL RESPIRATORY JANEL. Normal [facility] Comment on above: Performed By: #### S SCRN, THRTCX #### [facility] [address], [place] [address] Gopal Devi STREPT SCREENon 02-24-2021 STREP SCREEN A Negative Normal NEGATIVE [facility] Comment on above: Performed By: #### S SCRN, THRTCX #### [facility] [address], [place] [address] Gopal Devi Encounters Encounter Date Encounter Type Care Provider Facility Start: 12-08-2024 End: 12-08-2024 Clinisync Result Encounter Lopez Bridgett DO Work Phone: [facility] Unsolicited Start: 12-08-2024 End: 12-08-2024 Clinisync Result Encounter Lopez Bridgett DO Work Phone: [facility] Unsolicited Start: 09-09-2023 End: 09-09-2023 ambulatory DORINA SHETTY Not Available Start: 09-09-2023 End: 09-09-2023 Postop follow up visit related to original px Dorina SHIPLEY Work Phone: [facility] Comment on above: S/P section ; Postop check; Encounter for visit Start: 09-03-2023 End: 09-03-2023 ambulatory DORINA DIOGENES Not Available Start: 08-20-2023 End: 08-20-2023 ambulatory LOPEZ BRIDGETT Not Available Start: 08-01-2023 End: 08-01-2023 ambulatory DORINA DIOGENES Not Available Start: 07-17-2023 End: 07-17-2023 ambulatory DORINA DIOGENES Not Available Start: 07-03-2023 End: 07-03-2023 ambulatory LOPEZ BRIDGETT Not Available Start: 06-12-2023 End: 06-12-2023 ambulatory LOPEZ BRIDGETT Not Available Start: 05-06-2023 End: 05-07-2023 ambulatory MARV RDZ [facility] Start: 02-24-2021 End: 02-24-[address] BING HEAD Facility: Procedures Date Procedure Procedure Detail Performing Clinician Start: 12-08-2024 ALL CBC WITH AUTO DIFF Lopez Bridgett DO Work Phone: H/O: section S/P sectio n Dorina SHIPLEY Work Phone: Plan of Treatment Date Care Activity Detail Author Start: 03-29-2025 Influenza vaccination Influenz a Vaccine (Season Ended) [facility] Start: 10-08-2023 End: 10-08-2023 ambulatory 10/08/2023 1:30 PM EDT Visit [facility] [address] [place] [address] Dorina Shetty PA [address] [place] [address] [facility] Payers Date Payer Category Payer Medicaid [id number] 2022 Medicaid [id number] 2004 Unknown [id number] 2.16.84 [id number] 2004 Unknown [id number] 2.16.84 [id number] 2004 Unknown [id number] 2.16.84 [id number] 2004 Unknown [id number] [id number] 2004 Unknown [id number] 2.16.840 .[id number] 2004 Unknown [id number] 2.16.840 .[id number] 2004 Unknown [id number] 2.16.840. [id number] 1968 Unknown [id number] 2.16.84 [id number] 1959 Self-pay [id number] Social History Date Type Detail Facility Tobacco smoking stat [facility] Tobacco smoking consumption unknown [facility] Start: [...] the following prescription(s): aspirin, docusate sodium, ibuprofen, [id number], and valacyclovir. 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 [facility]. provides no warranty or guarantee of the accuracy or completeness of information in this document.
[2024-12-08] MEDS: BETAMETHASONE ACE/BETAMETHASONE SOD PHOS 30 MG/5 ML 12 MG IM (06:28)
[2024-12-08] MEDS: AMPICILLIN SODIUM 2,000 MG in 0.9 % SODIUM CHLORIDE 100 ML 200 MG IV (06:29)
[2024-12-08] MEDS: 0.9 % SODIUM CHLORIDE 1,000 ML 75 ML IV (06:35)
[2024-12-08] MEDS: MAGNESIUM-BOLUS FROM THE BAG- 40 GM/1,000 ML IV.SOLN IV (06:36)
[2024-12-08 07:04] LABS: Amphetamine Screen Urine NEGATIVE (NEGATIVE); Barbiturates Screen Urine NEGATIVE (NEGATIVE); Benzodiazepines Screen Urine NEGATIVE (NEGATIVE); Buprenorphine Screen Urine NEGATIVE (NEGATIVE); Cannabinoid Screen Urine NEGATIVE (NEGATIVE); Cocaine Screen Urine NEGATIVE (NEGATIVE); Methadone Screen Urine NEGATIVE (NEGATIVE); Methamphetamines Screen Urine NEGATIVE (NEGATIVE); Opiate Screen Urine NEGATIVE (NEGATIVE); Oxycodone Screen Urine NEGATIVE (NEGATIVE); Phencyclidine Screen Urine NEGATIVE (NEGATIVE); Tricyclic Antidepressant Urine NEGATIVE (NEGATIVE)
[2024-12-08] MEDS: MAGNESIUM SULFATE IN WATER 40 GM/1,000 ML IV.SOLN IV (07:14)
--- NOTE | 2024-12-08 08:14 | PC.NURSE ---
0736- Transport arrives at this time. RN gives report to transport team. Care relinquished to transport team. 0801- RN calls [facility] delivery at [facility]; report given.
--- NOTE | 2024-12-08 11:18 | P.OBHP_ITS ---
OB - H&P: HPI History of Present Illness Chief complaint: CONTRACTIONS : 2 Para: 1 Gestational age based on last menstrual period: 32 6/7wks Narrative: 19 yo at 32 6/7wks, presents with pprom, no care, pt was 3/50/-2 sve, toco q2-5, positive fm, no urinary symptoms History of Present Dating criteria: other (no care) care: other (none) Abnormal ultrasound findings: today 32 6/7wks Review of Systems ROS Status of ROS: 10 or more systems reviewed and unremarkable except as noted in history and below PFSH [facility] Social History Smoking status: Never smoker Highest level of school completed/degree received: high school graduate Meds Home Medications and Allergies Home Medications ?Medication ?Instructions ?Recorded ?Confirmed ?Type vits,calcium 21-iron fum tab PO 08/24/23 His tory 14 mg iron-folic acid 400 mcg tablet ( Complete) docusate sodium 100 mg capsule 100 mg PO BID 30 days # 60 caps 08/28/23 Rx docusate sodium 100 mg capsule 100 mg PO BID constipat ion 30 08/28/23 Rx (Colace) days #60 caps ibuprofen 400 mg tablet 800 mg (2 x 400 mg) PO Q8H P RN 08/28/23 Rx Pain 30 days #60 tabs ibuprofen 800 mg tablet 800 mg PO Q8H PRN Moderate P ain 30 08/28/23 Rx days #30 tabs oxycodone-acetaminophen 5 mg-325 1 tab PO Q8H 7 days # 21 tabs 08/28/23 Rx mg tablet (Percocet) oxycodone-acetaminophen 5 mg-325 1 tab PO Q8H pain 7 days #20 tabs 08/28/23 Rx mg tablet (Percocet) oxycodone-acetaminophen 5 mg-325 1 tab PO Q8H pain 1 week #21 tabs 08/28/23 Rx mg tablet (Percocet) valacyclovir 500 mg tablet mg 09/19/23 History Allergies Allergy/AdvReac Type Severity Reaction Status Date / Time No Known Drug Allergies Allergy Verified 12/08/24 09:09 Exam Constitutional Vital Signs, click to edit/add: Last Vital Signs Temp 97.2 F L 12/08/24 05:41 Pulse 88 12/08/24 07:41 BP 134/84 12/08/24 07:41 Documenting provider has reviewed patient's vital signs: yes Common normals: no apparent distress Respiratory Common normals: normal respiratory effort and clear to auscultation bilaterally Cardio Common normals: regular rate and regular rhythm GI Common normals: Normal to inspection, nondistended, normoactive bowel sounds present Extremity Common normals: no clubbing, cyanosis or edema and no calf tenderness Results Labs Labs: Short CBC 12/08/24 Range/Units 04:25 WBC 5.7 (4.0-11.0) 10^3/uL Hgb 10.9 L (12.0-16.0) g/dL Hct 33.0 L (36.0-48.0) % Plt Count 213 (150-450) 10^3/uL OB - A/P Assessment and Plan (1) Intrauterine : (2) premature rupture of membranes (PPROM) with onset of labor within 24 hours of rupture in third trimester, antepartum: (3) No care in current : Plan iv, routine labs, cont efm, iv abx, celestone given, magnesium 4g bolus 2g/hr, discussed with mfm, pt referred Urinary Catheter Management Urinary Catheter Management Urethral: Cath placed during this visit: yes Urethral indwelling: No Insertion date: 12/08/24 Insertion time: 05:50
[2024-12-09 05:07] LABS: HIV Ab/p24 Ag Screen Non Reactive (Non Reactive)
[2024-12-09 06:07] LABS: HBsAg Screen Negative (Negative); HCV Ab Non Reactive (Non Reactive)
[2024-12-09 08:09] LABS: Rubella Antibodies, IgG 3.08 index (Immune >0.99)
[2024-12-09 12:10] LABS: Rapid Plasma Reagin, Quant Non Reactive titer (NonRea<1:1)
== END 2024-12-08 08:04 | disposition short-term general hospital (02) ==
LOC: FBC 11:17
PROVIDERS: Admitting Provider Obstetrics & Gynecology; Visit Provider Obstetrics & Gynecology
DX: O42.013 Preterm premature rupture of membranes, onset of labor within 24 hours of rupture, third trimester (principal); Z3A.32 32 weeks gestation of pregnancy; O09.33 Supervision of pregnancy with insufficient antenatal care, third trimester
CPT/HCPCS: 36415; 51702; 76816; 80307; 83036; 84443; 85025; 86592; 86762; 86803; 86850; 86900; 86901; 87077; 87086; 87186; 87340; 87389; 96365; 96372; 96375; 96376; G0378; G0379; J0290; J0702; J3475